=== PATIENT | female | born 1945 | race African-American/Black ===

== ENCOUNTER 2016-06-17 22:14 | Emergency (ER) | payer OTHER ==
[~2016-06-17] VITALS: Ht 167.6 cm; Wt 67.1 kg
[~2016-06-17 22:14] MED LIST: AMLO5TAB2 PO; AMOX500T PO; VALS1TAB18 PO
[2016-06-17 22:15] VITALS: BP 169/79
[2016-06-17] MEDS ORDERED: HYDR-2666 PO (22:36)
[2016-06-17] MEDS ORDERED: CYCL5TAB PO (22:36)
--- NOTE | 2016-06-17 22:37 | PHYS DOC ---
Past Medical History Past Medical History: Bronchitis, Hypertension Past Surgical History: Cholecystectomy, Other Additional Past Surgical Histo: knees x2; lower back; rotator cuff, elbows, gallstone removal Alcohol Use: None Drug Use: None Adult General Chief Complaint Chief Complaint: BACK PAIN OR INJURY HPI HPI 70-year-old female presenting to the emergency department with left-sided thoracic back pain and muscle spasm. She denies any recent trauma. She denies any focal numbness weakness or tingling. She denies fevers or chills or any history of IV drug use. Her pain is sharp severe nonradiating and without alleviating factors. Review of systems is negative for fecal or urinary incontinence nausea vomiting fevers chills. She denies weakness in her lower extremities. All other review of systems is negative unless otherwise noted in history of present illness. Review of Systems Review of Systems SEE ABOVE. Current Medications Current Medications Current Medications Medications (Trade) Dose Ordered Sig/Liana Start Time Stop Time Status Last Admin Dose Admin Cyclobenzaprine HCl (Flexeril) 10 mg 1X ONCE 06/17/16 22:45 06/17/16 22:46 DC 06/17/16 22:47 10 MG Hydromorphone HCl (Dilaudid) 1 mg PRN Q1HR PRN 06/17/16 22:30 06/18/16 00:11 DC 06/18/16 00:11 1 MG Allergies Allergies Allergies Coded Allergies Type Severity Reaction Last Updated Verified codeine Allergy Severe SOA 07/29/14 No propofol Allergy Severe seizures 07/29/14 No meperidine Allergy Intermediate Hallucinations 07/29/14 No morphine Allergy Intermediate Hallucinations 07/29/14 Yes pentazocine Allergy Intermediate Hallucinations 07/29/14 No aspirin Allergy Mild nausea 07/29/14 No Physical Exam Physical Exam Constitutional: Well developed, well nourished, no acute distress, non-toxic appearance. HENT: Normocephalic, atraumatic, bilateral external ears normal, oropharynx moist, no oral exudates, nose normal. [] Eyes: PERRLA, EOMI, conjunctiva normal, no discharge. [] Neck: Normal range of motion, no tenderness, supple, no stridor. Cardiovascular:Heart rate regular rhythm, no murmur [] Lungs & Thorax: Bilateral breath sounds clear to auscultation [] Abdomen: Bowel sounds normal, soft, no tenderness, no masses, no pulsatile masses. Skin: Warm, dry, no erythema, no rash. [] Back: No lacerations abrasions or ecchymosis of the back. No step-offs present. Nontender midline cervical thoracic and lumbar region. No fluctuant masses or abscesses palpable. No erythema. Tender to palpation just to the left lateral in the trapezius muscle Extremities: No tenderness, no cyanosis, no clubbing, ROM intact, no edema. Neurologic: Alert and oriented X 3, normal motor function, normal sensory function, no focal deficits noted. Psychologic: Affect normal, judgement normal, mood normal. [] Current Patient Data Vital Signs Vital Signs Date Time Temp Pulse Resp B/P Pulse Ox O2 Delivery O2 Flow Rate FiO2 06/18/16 00:11 Nasal Cannula 06/17/16 22:45 17 93 06/17/16 22:15 101.1 104 169/79 101.1 EKG EKG [] Radiology/Procedures Radiology/Procedures [] Course & Med Decision Making Course & Med Decision Making Pertinent Labs and Imaging studies reviewed. (See chart for details) [] 70-year-old female presenting to the emergency department with muscle spasm left side of her back. Vital signs. Pertinent physical exam findings showed no erythema or fluctuance of the back. Nontender midline. The patient was treated in the emergency department with IV opioids along with oral anti-spasmatic agents. On reevaluation she was feeling much better. She was subsequent discharged home to follow up with her primary care physician over the next 2-3 days. Dragon Disclaimer Dragon Disclaimer This electronic medical record was generated, in whole or in part, using a voice recognition dictation system. Departure Departure Impression: Primary Impression: Back pain Disposition: 01 HOME, SELF-CARE Condition: STABLE Referrals: CÉSAR MARK (PCP) Patient Instructions: Back Pain, Adult, [id number] Additional Instructions: Thank you for allowing us to participate in your care today. Followup with your primary care physician in 3 days if your symptoms do not improve. If you do not have a primary care provider you can ask for a list of our primary care providers. Return to the emergency department you have any new or concerning findings. This should be evaluated by the primary care physician and any necessary consulting services for continued management within a few days after discharge. Return to emergency room if you have any new or concerning symptoms including but not limited to fever, chills, nausea, vomiting, intractable pain, any new rashes, chest pain, shortness of air, uncontrolled bleeding, difficulty breathing, and/or vision loss. You may have been prescribed medication that can change in your level of thinking and ability to operate machinery. These medications include hydrocodone and Ativan. Also, Benadryl has been known to do this as well. Be sure to check with your pharmacist and ask if the medications you've prescribed can affect your level of consciousness. I recommend not operating heavy machinery or driving while on medication such as these. Scripts Cyclobenzaprine Hcl 5 Mg Tablet1 Tab PO TID PRN PRN PAIN #20 TAB Prov:LARS OJEDA MD 06/17/16 Hydrocodone Bit/Acetaminophen (Hydrocodone-Apap 5-325 )1 Each Tablet1 Tab PO PRN Q6HRS PRN PAIN #15 TAB Be careful as this medication may cause you to be drowsy or tired. Do not drive on this medication. Prov:LARS OJEDA MD 06/17/16 Problem Qualifiers Primary Impression: Back pain Back pain location: thoracic back pain Chronicity: acute Back pain laterality: left Qualified Code: M54.6 - Pain in thoracic spine LARS OJEDA MD Jun 17, 2016 22:37
[2016-06-17] MEDS ORDERED: CYCLOBENZAPRINE 10 MG TABLET. PO ONE (22:45)
[2016-06-17] MEDS: HYDROmorphone 2 MG/ML VIAL IV PRN (22:45)
[2016-06-18] MEDS: HYDROmorphone 2 MG/ML VIAL IV PRN (00:11)
[2016-06-18] MEDS ORDERED: ONDANSETRON ODT 4 MG TAB.RAPDIS. ONE (01:19)
[2016-06-18] MEDS ORDERED: ONDANSETRON ODT 4 MG TAB.RAPDIS. PO ONE (01:30)
[2016-06-18] MEDS ORDERED: ONDANSETRON PF 4 MG/2 ML VIAL. IV ONE (01:30)
== END 2016-06-18 01:33 | disposition home or self-care (01) ==
LOC: ER 22:14
DX: M54.6 Pain in thoracic spine (principal); M62.830 Muscle spasm of back; I10 Essential (primary) hypertension; Z88.5 Allergy status to narcotic agent; Z88.6 Allergy status to analgesic agent; Z88.4 Allergy status to anesthetic agent; Z88.8 Allergy status to other drugs, medicaments and biological substances
CPT/HCPCS: 96374; 96376; 99284; J1170; Q0162

== ENCOUNTER 2016-06-19 23:29 | Emergency (ER) | payer OTHER ==
[~2016-06-19] VITALS: Ht 167.6 cm; Wt 79.8 kg
[~2016-06-19 23:29] MED LIST changes: +CYCL5TAB PO; +HYDR-2758 PO
[2016-06-20] MEDS ORDERED: HYDROcodone/APAP 5/325MG 1 TAB TABLET PO ONE (01:30)
[2016-06-20] MEDS ORDERED: HYDR-2678 PO (01:49)
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
[2016-06-20 02:08] VITALS: BP 152/75
== END 2016-06-20 02:12 | disposition home or self-care (01) ==
LOC: ER 23:29
DX: M25.562 Pain in left knee (principal); I10 Essential (primary) hypertension; Z98.890 Other specified postprocedural states; Z90.49 Acquired absence of other specified parts of digestive tract; Z88.5 Allergy status to narcotic agent; Z88.6 Allergy status to analgesic agent; Z88.8 Allergy status to other drugs, medicaments and biological substances
CPT/HCPCS: 99283

== ENCOUNTER 2016-09-21 20:54 | Emergency (ER) | payer OTHER ==
[~2016-09-21] VITALS: Ht 157.5 cm; Wt 79.8 kg
[~2016-09-21 20:54] MED LIST changes: +HYDR-2678 PO
[2016-09-21 21:10] VITALS: BP 183/98
[2016-09-21] MEDS ORDERED: TRAM50TA PO (21:19)
--- NOTE | 2016-09-21 21:19 | PHYS DOC ---
Past Medical History Past Medical History: Hypertension Past Surgical History: Cholecystectomy, Other Additional Past Surgical Histo: knees x2; lower back; rotator cuff, elbows, gallstone removal Alcohol Use: None Drug Use: None Adult General Chief Complaint Chief Complaint: Neck Pain [facility] HPI Patient is a 70 year old female that presents to the emergency department with complaints of neck pain. She states she's had a 5 day history of neck pain. Was evaluated by her primary care physician started on a muscle relaxant and anti- inflammatory. She states the pain has persisted and is here seeking further evaluation. No known injury. She believes that she slept on her pillow wrong. Review of Systems Review of Systems Constitutional: Denies fever or chills [] Eyes: Denies change in visual acuity, redness, or eye pain [] HENT: Denies nasal congestion or sore throat [] Respiratory: Denies cough or shortness of breath [] Cardiovascular: No additional information not addressed in HPI [] GI: Denies abdominal pain, nausea, vomiting, bloody stools or diarrhea [] : Denies dysuria or hematuria [] Musculoskeletal: Neck pain Integument: Denies rash or skin lesions [] Neurologic: Denies headache, focal weakness or sensory changes [] Endocrine: Denies polyuria or polydipsia [] Allergies Allergies Allergies Coded Allergies Type Severity Reaction Last Updated Verified codeine Allergy Severe SOA 07/29/14 No propofol Allergy Severe seizures 07/29/14 No meperidine Allergy Intermediate Hallucinations 07/29/14 No morphine Allergy Intermediate Hallucinations 07/29/14 Yes pentazocine Allergy Intermediate Hallucinations 07/29/14 No aspirin Allergy Mild nausea 07/29/14 No Physical Exam Physical Exam Constitutional: Well developed, well nourished, no acute distress, non-toxic appearance. [] HENT: Normocephalic, atraumatic, bilateral external ears normal, oropharynx moist, no oral exudates, nose normal. [] Eyes: PERRLA, EOMI, conjunctiva normal, no discharge. [] Neck: No midline tenderness. Tenderness of the paracervical muscles and into the bilateral trapezius. There is palpable muscle spasm. Cardiovascular:Heart rate regular rhythm, no murmur [] Lungs & Thorax: Bilateral breath sounds clear to auscultation [] Abdomen: Bowel sounds normal, soft, no tenderness, no masses, no pulsatile masses. [] Skin: Warm, dry, no erythema, no rash. [] Back: No tenderness, no CVA tenderness. [] Extremities: No tenderness, no cyanosis, no clubbing, ROM intact, no edema. [] Muscle strength 5 over 5 Neurologic: Alert and oriented X 3, normal motor function, normal sensory function, no focal deficits noted. Cranial nerves II-12 are grossly intact [] Psychologic: Affect normal, judgement normal, mood normal. [] EKG EKG [] Radiology/Procedures Radiology/Procedures [] Course & Med Decision Making Course & Med Decision Making Pertinent Labs and Imaging studies reviewed. (See chart for details) [] Patient blood-pressure is elevated. She admits that she has not taken her blood pressure medicines today. She denies headache, dizziness, blurred vision, double vision, chest pain. She will be discharged home with plan to take her medicine for blood pressure bilateral home. Dragon Disclaimer Dragon Disclaimer This electronic medical record was generated, in whole or in part, using a voice recognition dictation system. Departure Departure Impression: Primary Impression: Neck pain Disposition: 01 HOME, SELF-CARE Condition: STABLE Referrals: CÉSAR MARK (PCP) Patient Instructions: Muscle Strain Additional Instructions: Continue medications as directed by her primary care provider. Scripts Tramadol Hcl (TRAMADOL HCL) 50 Mg Tablet 50 MG PO Q6HRS Y for PAIN, #10 TAB 0 Refills Prov: ALEJANDRA ARANGO APRN 09/21/16 ALEJANDRA ARANGO APRN Sep 21, 2016 21:19
[2016-09-21] MEDS ORDERED: traMADol 50 MG TABLET PO ONE (21:30)
== END 2016-09-21 21:32 | disposition home or self-care (01) ==
LOC: ER 20:54
DX: M54.2 Cervicalgia (principal); I10 Essential (primary) hypertension; Z90.49 Acquired absence of other specified parts of digestive tract; Z88.5 Allergy status to narcotic agent; Z88.6 Allergy status to analgesic agent; Z88.8 Allergy status to other drugs, medicaments and biological substances
CPT/HCPCS: 99283

== ENCOUNTER 2017-02-05 09:58 | Emergency (ER) | payer OTHER, MEDICARE ==
[~2017-02-05] VITALS: Ht 167.6 cm; Wt 77.1 kg
[~2017-02-05 09:58] MED LIST changes: +TRAM50TA PO
[2017-02-05 10:00] VITALS: BP 147/83
--- NOTE | 2017-02-05 10:35 | RAD ---
Left knee with patella, 4 views, 02/05/2017: History: Injury, pain There is mild patchy bony demineralization. No acute fracture or dislocation is identified. There is mild spurring at the knee joint and at the patellofemoral articulation. There is minimal chondrocalcinosis. There is mild suprapatellar soft tissue fullness. IMPRESSION: 1. Mild degenerative change with chondrocalcinosis. 2. No acute bony abnormality is detected.
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
[2017-02-05] MEDS ORDERED: METH4TAB2 PO (11:40)
== END 2017-02-05 12:00 | disposition home or self-care (01) ==
LOC: ER 09:58
DX: S83.92XA Sprain of unspecified site of left knee, initial encounter (principal); M17.12 Unilateral primary osteoarthritis, left knee; F43.10 Post-traumatic stress disorder, unspecified; I10 Essential (primary) hypertension; Z90.49 Acquired absence of other specified parts of digestive tract; Z88.5 Allergy status to narcotic agent; Z88.6 Allergy status to analgesic agent; Z88.8 Allergy status to other drugs, medicaments and biological substances; X58.XXXA Exposure to other specified factors, initial encounter; Y99.8 Other external cause status; Y93.89 Activity, other specified; Y92.89 Other specified places as the place of occurrence of the external cause
CPT/HCPCS: 29505; 73564; 99284-25

== ENCOUNTER 2017-02-21 18:59 | Emergency (ER) | payer OTHER, MEDICARE ==
[~2017-02-21 18:59] MED LIST changes: +METH4TAB2 PO
[2017-02-21 19:14] VITALS: BP 179/85
[2017-02-21] MEDS ORDERED: HYDROcodone/APAP 10/325 1 TAB TABLET PO ONE (19:15)
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
== END 2017-02-21 19:54 | disposition home or self-care (01) ==
LOC: ER 18:59
DX: S83.8X2D Sprain of other specified parts of left knee, subsequent encounter (principal); I10 Essential (primary) hypertension; Z88.5 Allergy status to narcotic agent; Z88.6 Allergy status to analgesic agent; Z88.8 Allergy status to other drugs, medicaments and biological substances; Z90.49 Acquired absence of other specified parts of digestive tract; X50.9XXA Other and unspecified overexertion or strenuous movements or postures, initial encounter; Y93.89 Activity, other specified; Y99.8 Other external cause status; Y92.89 Other specified places as the place of occurrence of the external cause
CPT/HCPCS: 29505; 99284-25

== ENCOUNTER → 2017-11-02 | Outpatient (CLI) | payer OTHER, MEDICARE ==
--- NOTE | 2017-11-02 12:17 | RAD ---
Thyroid ultrasound, 11/02/2017: HISTORY: Thyroid nodule The right lobe of the gland measures 4.9 x 1.7 x 1.6 cm while the left lobe of the gland measures 5.4 x 2.1 x 1.8 cm. The thyroid echo pattern is heterogeneous. Multiple nodules are evident. The largest discrete nodule lies in the lower pole of the left lobe of the gland and measures 2.6 x 2.1 x 1.5 cm. It is a predominantly solid nodule with only small cystic components. Some of its margins are well-defined while others are somewhat indistinct. It is wider than tall. No internal calcifications are seen. An additional 8 mm well-defined mixed cystic and solid nodule is seen in the midportion of the left lobe of the gland. An 11 x 9 x 5 mm smoothly marginated, predominantly solid nodule is present in the thyroid isthmus. A similar 13 x 9 x 7 mm solid nodule is present anteriorly in the lower pole the right lobe of the gland. No calcifications or other highly suspicious features are seen. There are other small subcentimeter scattered hypoechoic foci in both lobes of the gland. IMPRESSION: Multinodular thyroid gland with a dominant complex nodule in the left lobe as described above. By ACR TI-RADS criteria this nodule is considered to be mildly suspicious. Ultrasound-guided biopsy should be considered for further evaluation. The other nodules can be followed sonographically. Electronically signed by: Reed Davila MD (11/02/2017 12:14 PM) [facility]
== END | disposition home or self-care (01) ==
LOC: US 06:43
PROVIDERS: ATTEND Family Medicine
DX: E04.1 Nontoxic single thyroid nodule (principal); M17.12 Unilateral primary osteoarthritis, left knee; E03.9 Hypothyroidism, unspecified; I10 Essential (primary) hypertension; Z87.442 Personal history of urinary calculi; Z90.49 Acquired absence of other specified parts of digestive tract; Z88.8 Allergy status to other drugs, medicaments and biological substances; Z88.5 Allergy status to narcotic agent; Z88.4 Allergy status to anesthetic agent; Z88.6 Allergy status to analgesic agent
CPT/HCPCS: 76536

== ENCOUNTER → 2021-03-02 | Outpatient (CLI) | payer OTHER, MEDICARE ==
[~2021-03-02] MED LIST changes: +AMLO-186 PO; -AMLO5TAB2 PO; -HYDR-2758 PO; +HYDR-2761 PO; -VALS1TAB18 PO; +VALS1TAB19 PO
--- NOTE | 2021-03-02 11:18 | KCIC ---
EXAM: Right foot, 3 views. HISTORY: Pain. COMPARISON: None. FINDINGS: 3 views of the right foot are obtained. There is no acute fracture, dislocation or subluxat ion. There is a small plantar spur. There is enthesopathy at Achilles tendon insertion. IMPRESSION: No acute osseous finding. Electronically signed by: Asha Suazo MD (03/02/2021 11:16 AM) [id number]
== END ==
LOC: KCIC 08:35
PROVIDERS: ATTEND Family Medicine
DX: M77.31 Calcaneal spur, right foot (principal); M76.61 Achilles tendinitis, right leg
CPT/HCPCS: 73630